=== PATIENT | male | born 1965 | race African-American/Black ===

== ENCOUNTER 2018-10-24 17:46 | Inpatient (IN) | payer OTHER ==
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
[2018-10-24] MEDS ORDERED: NICOTINE POLACRILEX 2 MG GUM BUC PRN (18:43)
[2018-10-24] MEDS ORDERED: MAGNESIUM HYDROX 2400MG/30ML ORAL SUSPENSION 30 ML CUP PO PRN (18:43)
[2018-10-24] MEDS ORDERED: MAG HYDROX/AL HYDROX/SIMETH 30 ML UNIT-DOSE CUP PO PRN (18:43)
[2018-10-24] MEDS ORDERED: MENTHOL/PHENOL 1 EACH UD MM PRN (18:43)
[2018-10-24] MEDS ORDERED: chlordiazePOXIDE HCL 10 MG CAPSULE PO PRN (18:43)
[2018-10-24] MEDS ORDERED: BISMUTH SUBSALICYLATE 524 MG/30 ML UD PO PRN (18:43)
[2018-10-24] MEDS ORDERED: ACETAMINOPHEN 325 MG TABLET (FP) PO PRN ×2 (18:43)
[2018-10-24] MEDS ORDERED: MAGNESIUM CITRATE 300 ML BOTTLE PO PRN (18:43)
[2018-10-24] MEDS: IBUPROFEN 400 MG TABLET (FP) PO PRN (20:57)
[2018-10-24] MEDS: METHOCARBAMOL 500 MG TABLET PO PRN (20:59)
[2018-10-24] MEDS ORDERED: traZODone HCL 50 MG TABLET (FP) PO SCH (22:00)
[2018-10-24] MEDS: THIAMINE HCL 100 MG TABLET (FP) PO SCH (22:03)
[2018-10-24] MEDS: chlordiazePOXIDE HCL 25 MG CAPSULE PO SCH (22:03)
[2018-10-25] MEDS: chlordiazePOXIDE HCL 25 MG CAPSULE PO SCH ×2 (06:22→14:24)
[2018-10-25 10:20] LABS: HEMATOCRIT 38.9 % (35.4-49); HEMOGLOBIN 12.7 GM/dL (11.7-16.9); MCH 31.7 pg (25.7-33.7); MCHC 32.7 g/dl (32.0-35.9); MEAN CELL VOLUME 96.8 fl (80-96); MEAN PLT VOLUME 8.7 fl (7.5-11.1); PLATELET COUNT 283 K/MM3 (134-434); RBC 4.02 M/mm3 (4.00-5.60); RDW 14.5 % (11.9-15.9); WHITE BLOOD COUNT 6.8 K/mm3 (4.0-10.0)
[2018-10-25 10:31] LABS: ALBUMIN 3.4 g/dl (3.4-5.0); ALK PHOS 115 U/L (45-117); ANION GAP 4 MMOL/L (8-16); BILIRUBIN,TOTAL 0.5 mg/dL (0.2-1); BLOOD UREA NITROGEN 17 mg/dL (7-18); CALCIUM 8.8 mg/dL (8.5-10.1); CHLORIDE 104 mmol/L (98-107); CO2 28 mmol/L (21-32); GLUCOSE,RANDOM 79 mg/dL (74-106); SGOT/AST 45 U/L (15-37); SGPT/ALT 37 U/L (13-61); SODIUM 136 mmol/L (136-145); TOT PROT 7.1 g/dl (6.4-8.2)
[2018-10-25] MEDS: METHOCARBAMOL 500 MG TABLET PO PRN ×2 (10:44→22:28)
[2018-10-25] MEDS: amLODIPine BESYLATE 5 MG TABLET (FP) PO SCH (10:44)
[2018-10-25] MEDS: PRENATAL VITAMINS W/ FOLIC ACID TABLET (FP) PO SCH (10:44)
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
--- NOTE | 2018-10-25 16:13 | PN ---
S CIWA - CIWA Score Nausea/Vomitin-No Nausea/No Vomiting Muscle Tremors: None Anxiety: 3 Agitation: 3 Paroxysmal Sweats: 3 Orientation: 2-Disoriented Date<2 days Tacttile Disturbances: 2-Mild Itch/Numbness/Burn Auditory Disturbances: 0-None Visual Disturbances: 2-Mild Sensitivity Headache: 0-None Present CIWA-Ar Total Score: 15 BHS Progress Note (SOAP) Subjective: Interrupted Sleep, Sweating, Body Aches. Objective: PATIENT A & O X 2 (UNCERTAIN ABOUT CURRENT DAY / DATE). PATIENT OBSERVED AMBULATING ON UNIT. IN NO ACUTE DISTRESS. 10/25/18 16:08 Vital Signs Temperature 96 F L 10/25/18 14:21 Pulse Rate 88 10/25/18 14:21 Respiratory Rate 20 10/25/18 14:21 Blood Pressure 117/81 10/25/18 14:21 O2 Sat by Pulse Oximetry (%) Laboratory Tests 10/25/18 10/25/18 10/25/18 07:00 07:00 07:00 WBC 6.8 RBC 4.02 Hgb 12.7 Hct 38.9 MCV 96.8 H MCH 31.7 MCHC 32.7 RDW 14.5 Plt Count 283 MPV 8.7 Sodium 136 Potassium 4.0 Chloride 104 Carbon Dioxide 28 Anion Gap 4 L BUN 17 Creatinine 1.0 Creat Clearance w eGFR 78.16 Random Glucose 79 Calcium 8.8 Total Bilirubin 0.5 AST 45 H ALT 37 Alkaline Phosphatase 115 Total Protein 7.1 Albumin 3.4 RPR Titer Nonreactive LABS NOTED. PATIENT REPORTS INTERMITTENT FEELING OF DISCOMFORT "NEAR TIP OF HIS PENUS" SINCE YESTERDAY. DISCOMFORT SOMETIMES OCCURS WHEN HE IS URINATING, BUT AT OTHER TIMES, WELL. ORDER UA AND URINE C + S. 10/25/18 16:11 Assessment: 10/25/18 16:08 WITHDRAWAL SYMPTOMS. Plan: CONTINUE DETOX. INCREASE DAILY PO FLUID INTAKE. PRN ROBAXIN FOR BODY ACHES / MUSCLE SPASMS. LIDODERM PATCH FOR RIGHT HIP PAIN.
[2018-10-25] MEDS: LIDOCAINE 5% TOPICAL PATCH TP SCH (17:30)
[2018-10-25] MEDS: traZODone HCL 100 MG TABLET (FP) PO SCH (22:25)
[2018-10-25] MEDS: QUEtiapine FUMARATE 200 MG TABLET PO SCH (22:25)
[2018-10-25] MEDS: chlordiazePOXIDE 5 MG CAPSULE PO SCH (22:25)
[2018-10-25] MEDS: THIAMINE HCL 100 MG TABLET (FP) PO SCH (22:25)
[2018-10-25] MEDS: LIDOCAINE PATCH REMOVAL MC SCH (22:27)
[2018-10-26] MEDS: chlordiazePOXIDE 5 MG CAPSULE PO SCH ×2 (05:19→15:02)
[2018-10-26] MEDS: IBUPROFEN 400 MG TABLET (FP) PO PRN (05:20)
[2018-10-26 10:26] LABS: PH,URINE 5.5 (5.0-8.0); URINE APPEARANCE CLEAR; URINE BILIRUBIN NEGATIVE (NEGATIVE); URINE COLOR YELLOW; URINE GLUCOSE (UA) NEGATIVE (NEGATIVE); URINE KETONE NEGATIVE (NEGATIVE); URINE LEUK ESTERASE NEGATIVE (NEGATIVE); URINE NITRITE NEGATIVE (NEGATIVE); URINE PROTEIN NEGATIVE (NEGATIVE)
[2018-10-26] MEDS: SERTRALINE HCL 50 MG TABLET (FP) PO SCH (10:47)
[2018-10-26] MEDS: QUEtiapine FUMARATE 100 MG TABLET (FP) PO SCH (10:47)
[2018-10-26] MEDS: amLODIPine BESYLATE 5 MG TABLET (FP) PO SCH (10:47)
[2018-10-26] MEDS: PRENATAL VITAMINS W/ FOLIC ACID TABLET (FP) PO SCH (10:48)
[2018-10-26] MEDS: METHOCARBAMOL 500 MG TABLET PO PRN (10:49)
[2018-10-26] MEDS: LIDOCAINE 5% TOPICAL PATCH TP SCH (10:49)
--- NOTE | 2018-10-26 15:36 | PN ---
[facility] CIWA - CIWA Score Nausea/Vomitin-No Nausea/No Vomiting Muscle Tremors: None Anxiety: 4-Mod. Anxious/Guarded Agitation: 0-Normal Activity Paroxysmal Sweats: 3 Orientation: 0-Oriented Tacttile Disturbances: 1-Very Mild Itch/Numbness Auditory Disturbances: 1-Very Mild Visual Disturbances: 2-Mild Sensitivity Headache: 0-None Present CIWA-Ar Total Score: 11 S Progress Note (SOAP) Subjective: Interrupted Sleep, Sweating, Body Aches. Objective: PATIENT A & O X 3, OBSERVED AMBULATING ON UNIT. IN NO ACUTE DISTRESS. 10/26/18 15:33 Vital Signs Temperature 97.0 F L 10/26/18 13:32 Pulse Rate 94 H 10/26/18 13:32 Respiratory Rate 20 10/26/18 13:32 Blood Pressure 129/83 10/26/18 13:32 O2 Sat by Pulse Oximetry (%) Laboratory Tests 10/25/18 10/25/18 10/25/18 07:00 07:00 07:00 WBC 6.8 RBC 4.02 Hgb 12.7 Hct 38.9 MCV 96.8 H MCH 31.7 MCHC 32.7 RDW 14.5 Plt Count 283 MPV 8.7 Sodium 136 Potassium 4.0 Chloride 104 Carbon Dioxide 28 Anion Gap 4 L BUN 17 Creatinine 1.0 Creat Clearance w eGFR 78.16 Random Glucose 79 Calcium 8.8 Total Bilirubin 0.5 AST 45 H ALT 37 Alkaline Phosphatase 115 Total Protein 7.1 Albumin 3.4 Urine Color Urine Appearance Urine pH Ur Specific [place] Urine Protein Urine Glucose (UA) Urine Ketones Urine Blood Urine Nitrite Urine Bilirubin Urine Urobilinogen Ur Leukocyte Esterase RPR Titer Nonreactive 10/26/18 07:45 WBC RBC Hgb Hct MCV MCH MCHC RDW Plt Count MPV Sodium Potassium Chloride Carbon Dioxide Anion Gap BUN Creatinine Creat Clearance w eGFR Random Glucose Calcium Total Bilirubin AST ALT Alkaline Phosphatase Total Protein Albumin Urine Color Yellow Urine Appearance Clear Urine pH 5.5 Ur Specific [place] 1.023 Urine Protein Negative Urine Glucose (UA) Negative Urine Ketones Negative Urine Blood Negative Urine Nitrite Negative Urine Bilirubin Negative Urine Urobilinogen 1.0 Ur Leukocyte Esterase Negative RPR Titer LABS NOTED. RESULTS OF UA NOTED. URINE C + S RESULTS PENDING. PATIENT REPORTS THAT INTERMITTENT SENSATION OF DISCOMFORT THAT HE WAS EXPERIENCING NEAR TIP OF HIS PENIS HAS NOT OCCURRED TODAY. 10/26/18 15:34 Assessment: 10/26/18 15:35 WITHDRAWAL SYMPTOMS. Plan: CONTINUE DETOX. INCREASE DAILY PO FLUID INTAKE.
[2018-10-26] MEDS ORDERED: chlordiazePOXIDE HCL 10 MG CAPSULE PO PRN (21:00)
[2018-10-26] MEDS: chlordiazePOXIDE HCL 10 MG CAPSULE PO SCH (22:29)
[2018-10-26] MEDS: traZODone HCL 100 MG TABLET (FP) PO SCH (22:29)
[2018-10-26] MEDS: THIAMINE HCL 100 MG TABLET (FP) PO SCH (22:29)
[2018-10-26] MEDS: QUEtiapine FUMARATE 200 MG TABLET PO SCH (22:29)
[2018-10-26] MEDS: LIDOCAINE PATCH REMOVAL MC SCH (23:13)
[2018-10-27] MEDS: chlordiazePOXIDE HCL 10 MG CAPSULE PO SCH ×3 (05:25→22:20)
[2018-10-27] MEDS: QUEtiapine FUMARATE 100 MG TABLET (FP) PO SCH (10:10)
[2018-10-27] MEDS: PRENATAL VITAMINS W/ FOLIC ACID TABLET (FP) PO SCH (10:10)
[2018-10-27] MEDS: SERTRALINE HCL 50 MG TABLET (FP) PO SCH (10:10)
[2018-10-27] MEDS: amLODIPine BESYLATE 5 MG TABLET (FP) PO SCH (10:10)
[2018-10-27] MEDS: LIDOCAINE 5% TOPICAL PATCH TP SCH (10:11)
--- NOTE | 2018-10-27 11:29 | DS ---
[facility] Detox Discharge Summary Admission Date: 10/24/18 Discharge Date: 10/28/18 - History Present History: Alcohol Dependence - Physical Exam Results Vital Signs: Vital Signs Temperature 97.2 F L 10/27/18 09:53 Pulse Rate 79 10/27/18 09:53 Respiratory Rate 18 10/27/18 09:53 Blood Pressure 140/81 10/27/18 09:53 O2 Sat by Pulse Oximetry (%) - Treatment Hospital Course: Detox Protocol Followed, Detoxed Safely, Responded well, Discharged Condition Good, Rehab Referral Accepted - Medication Discharge Medications: Ambulatory Orders Amlodipine Besylate [Norvasc -] 5 mg PO DAILY 10/24/18 Quetiapine Fumarate [Seroquel] 400 mg PO BID 10/24/18 Sertraline HCl [Zoloft] 25 mg PO DAILY 10/24/18 Trazodone HCl 150 mg PO HS 10/24/18 - AMA Did Patient Leave Against Medical Advice: No
--- NOTE | 2018-10-27 11:29 | PN ---
[facility] CIWA - CIWA Score Nausea/Vomitin-No Nausea/No Vomiting Muscle Tremors: 1-None Visible, but [place] Anxiety: 1-Mildly Anxious Agitation: 2 Paroxysmal Sweats: 1-Minimal Palms Moist Orientation: 0-Oriented Tacttile Disturbances: 0-None Auditory Disturbances: 0-None Visual Disturbances: 0-None Headache: 1-Very Mild CIWA-Ar Total Score: 6 S Progress Note (SOAP) Subjective: patient wants to go to alcohol rehab he has been sober for "years" but recent incident he starts to drink alcohol again patient determines to be sober aftercare revelation Objective: 10/27/18 11:32 Vital Signs Temperature 97.2 F L 10/27/18 09:53 Pulse Rate 79 10/27/18 09:53 Respiratory Rate 18 10/27/18 09:53 Blood Pressure 140/81 10/27/18 09:53 O2 Sat by Pulse Oximetry (%) Laboratory Last Values WBC 6.8 K/mm3 (4.0-10.0) 10/25/18 07:00 RBC 4.02 M/mm3 (4.00-5.60) 10/25/18 07:00 Hgb 12.7 GM/dL (11.7-16.9) 10/25/18 07:00 Hct 38.9 % (35.4-49) 10/25/18 07:00 MCV 96.8 fl (80-96) H 10/25/18 07:00 MCH 31.7 pg (25.7-33.7) 10/25/18 07:00 MCHC 32.7 g/dl (32.0-35.9) 10/25/18 07:00 RDW 14.5 % (11.9-15.9) 10/25/18 07:00 Plt Count 283 K/MM3 (134-434) 10/25/18 07:00 MPV 8.7 fl (7.5-11.1) 10/25/18 07:00 Sodium 136 mmol/L (136-145) 10/25/18 07:00 Potassium 4.0 mmol/L (3.5-5.1) 10/25/18 07:00 Chloride 104 mmol/L (98-107) 10/25/18 07:00 Carbon Dioxide 28 mmol/L (21-32) 10/25/18 07:00 Anion Gap 4 MMOL/L (8-16) L 10/25/18 07:00 BUN 17 mg/dL (7-18) 10/25/18 07:00 Creatinine 1.0 mg/dL (0.55-1.3) 10/25/18 07:00 Creat Clearance w eGFR 78.16 (>60) 10/25/18 07:00 Random Glucose 79 mg/dL (74-106) 10/25/18 07:00 Calcium 8.8 mg/dL (8.5-10.1) 10/25/18 07:00 Total Bilirubin 0.5 mg/dL (0.2-1) 10/25/18 07:00 AST 45 U/L (15-37) H 10/25/18 07:00 ALT 37 U/L (13-61) 10/25/18 07:00 Alkaline Phosphatase 115 U/L (45-117) 10/25/18 07:00 Total Protein 7.1 g/dl (6.4-8.2) 10/25/18 07:00 Albumin 3.4 g/dl (3.4-5.0) 10/25/18 07:00 Urine Color Yellow 10/26/18 07:45 Urine Appearance Clear 10/26/18 07:45 Urine pH 5.5 (5.0-8.0) 10/26/18 07:45 Ur Specific [place] 1.023 (1.010-1.035) 10/26/18 07:45 Urine Protein Negative (NEGATIVE) 10/26/18 07:45 Urine Glucose (UA) Negative (NEGATIVE) 10/26/18 07:45 Urine Ketones Negative (NEGATIVE) 10/26/18 07:45 Urine Blood Negative (NEGATIVE) 10/26/18 07:45 Urine Nitrite Negative (NEGATIVE) 10/26/18 07:45 Urine Bilirubin Negative (NEGATIVE) 10/26/18 07:45 Urine Urobilinogen 1.0 mg/dL (0.2-1.0) 10/26/18 07:45 Ur Leukocyte Esterase Negative (NEGATIVE) 10/26/18 07:45 RPR Titer Nonreactive (NONREACTIVE) 10/25/18 07:00 lab noted Assessment: 10/27/18 11:33 withdrawal sx Plan: continue detox
[2018-10-27] MEDS: THIAMINE HCL 100 MG TABLET (FP) PO SCH (22:19)
[2018-10-27] MEDS: traZODone HCL 100 MG TABLET (FP) PO SCH (22:20)
[2018-10-27] MEDS: QUEtiapine FUMARATE 200 MG TABLET PO SCH (22:20)
[2018-10-27] MEDS: LIDOCAINE PATCH REMOVAL MC SCH (22:39)
[2018-10-28] MEDS: amLODIPine BESYLATE 5 MG TABLET (FP) PO SCH (10:19)
[2018-10-28] MEDS: LIDOCAINE 5% TOPICAL PATCH TP SCH (10:19)
[2018-10-28] MEDS: QUEtiapine FUMARATE 100 MG TABLET (FP) PO SCH (10:20)
[2018-10-28] MEDS: SERTRALINE HCL 50 MG TABLET (FP) PO SCH (10:20)
[2018-10-28] MEDS: PRENATAL VITAMINS W/ FOLIC ACID TABLET (FP) PO SCH (10:20)
--- NOTE | 2018-10-28 15:27 | PN ---
[facility] CIWA - CIWA Score Nausea/Vomitin-No Nausea/No Vomiting Muscle Tremors: 1-None Visible, but [place] Anxiety: 0-No Anxiety, at Ease Agitation: 0-Normal Activity Paroxysmal Sweats: No Perspiration Orientation: 0-Oriented Tacttile Disturbances: 0-None Auditory Disturbances: 0-None Visual Disturbances: 0-None Headache: 1-Very Mild CIWA-Ar Total Score: 2 S Progress Note (SOAP) Subjective: received counselor report that insurance granted one more day of detox change discharge date to 10/29/18 Objective: 10/28/18 15:28 Vital Signs Temperature 97.7 F 10/28/18 13:35 Pulse Rate 102 H 10/28/18 13:35 Respiratory Rate 18 10/28/18 13:35 Blood Pressure 131/83 10/28/18 13:35 O2 Sat by Pulse Oximetry (%) Laboratory Last Values WBC 6.8 K/mm3 (4.0-10.0) 10/25/18 07:00 RBC 4.02 M/mm3 (4.00-5.60) 10/25/18 07:00 Hgb 12.7 GM/dL (11.7-16.9) 10/25/18 07:00 Hct 38.9 % (35.4-49) 10/25/18 07:00 MCV 96.8 fl (80-96) H 10/25/18 07:00 MCH 31.7 pg (25.7-33.7) 10/25/18 07:00 MCHC 32.7 g/dl (32.0-35.9) 10/25/18 07:00 RDW 14.5 % (11.9-15.9) 10/25/18 07:00 Plt Count 283 K/MM3 (134-434) 10/25/18 07:00 MPV 8.7 fl (7.5-11.1) 10/25/18 07:00 Sodium 136 mmol/L (136-145) 10/25/18 07:00 Potassium 4.0 mmol/L (3.5-5.1) 10/25/18 07:00 Chloride 104 mmol/L (98-107) 10/25/18 07:00 Carbon Dioxide 28 mmol/L (21-32) 10/25/18 07:00 Anion Gap 4 MMOL/L (8-16) L 10/25/18 07:00 BUN 17 mg/dL (7-18) 10/25/18 07:00 Creatinine 1.0 mg/dL (0.55-1.3) 10/25/18 07:00 Creat Clearance w eGFR 78.16 (>60) 10/25/18 07:00 Random Glucose 79 mg/dL (74-106) 10/25/18 07:00 Calcium 8.8 mg/dL (8.5-10.1) 10/25/18 07:00 Total Bilirubin 0.5 mg/dL (0.2-1) 10/25/18 07:00 AST 45 U/L (15-37) H 10/25/18 07:00 ALT 37 U/L (13-61) 10/25/18 07:00 Alkaline Phosphatase 115 U/L (45-117) 10/25/18 07:00 Total Protein 7.1 g/dl (6.4-8.2) 10/25/18 07:00 Albumin 3.4 g/dl (3.4-5.0) 10/25/18 07:00 Urine Color Yellow 10/26/18 07:45 Urine Appearance Clear 10/26/18 07:45 Urine pH 5.5 (5.0-8.0) 10/26/18 07:45 Ur Specific [place] 1.023 (1.010-1.035) 10/26/18 07:45 Urine Protein Negative (NEGATIVE) 10/26/18 07:45 Urine Glucose (UA) Negative (NEGATIVE) 10/26/18 07:45 Urine Ketones Negative (NEGATIVE) 10/26/18 07:45 Urine Blood Negative (NEGATIVE) 10/26/18 07:45 Urine Nitrite Negative (NEGATIVE) 10/26/18 07:45 Urine Bilirubin Negative (NEGATIVE) 10/26/18 07:45 Urine Urobilinogen 1.0 mg/dL (0.2-1.0) 10/26/18 07:45 Ur Leukocyte Esterase Negative (NEGATIVE) 10/26/18 07:45 RPR Titer Nonreactive (NONREACTIVE) 10/25/18 07:00 lab noted Assessment: 10/28/18 15:29 mild withdrawal sx Plan: continue detox
[2018-10-28] MEDS: QUEtiapine FUMARATE 200 MG TABLET PO SCH (22:05)
[2018-10-28] MEDS: THIAMINE HCL 100 MG TABLET (FP) PO SCH (22:05)
[2018-10-28] MEDS: traZODone HCL 100 MG TABLET (FP) PO SCH (22:05)
[2018-10-28] MEDS: LIDOCAINE PATCH REMOVAL MC SCH (22:06)
[2018-10-29] MEDS: QUEtiapine FUMARATE 100 MG TABLET (FP) PO SCH (10:17)
[2018-10-29] MEDS: amLODIPine BESYLATE 5 MG TABLET (FP) PO SCH (10:17)
[2018-10-29] MEDS: SERTRALINE HCL 50 MG TABLET (FP) PO SCH (10:17)
[2018-10-29] MEDS: PRENATAL VITAMINS W/ FOLIC ACID TABLET (FP) PO SCH (10:17)
[2018-10-29] MEDS: LIDOCAINE 5% TOPICAL PATCH TP SCH (10:18)
[2018-10-29] MEDS: IBUPROFEN 400 MG TABLET (FP) PO PRN (10:45)
[2018-10-29] MEDS: METHOCARBAMOL 500 MG TABLET PO PRN (10:46)
--- NOTE | 2018-10-29 11:51 | HP ---
[facility] Rehab Assess/Revision - Admission History Admitted to Rehab from: [facility] Date of Admission to Rehab: 09/28/18 - Vital signs Vital Signs: Vital Signs Period Temp Pulse Resp BP Sys/Apple Pulse Ox Last 24 Hr 97.3 F-98.4 F 83-102 18-18 108-138/67-98 - Findings Detox History & Physical reviewed: Yes Concur with findings: Yes Comments/Additional Findings: transferred from detox to rehab admission as per protocol Inpatient Rehab Admission - Rehab Decision to Admit Inpatient rehab admission?: Yes - Initial Determination Are CD services needed?: Yes Free of communicable disease: Yes Not in need of hospitalization: Yes - Rehab Admission Criteria Previous failed treatment: Yes Poor recovery environment: Yes Comorbidities: Yes Lacks judgement: No Patient is meeting Inpatient Rehab admission criteria:: Yes
[2018-10-29] MEDS: traZODone HCL 100 MG TABLET (FP) PO SCH (21:58)
[2018-10-29] MEDS: LIDOCAINE PATCH REMOVAL MC SCH (21:58)
[2018-10-29] MEDS: QUEtiapine FUMARATE 200 MG TABLET PO SCH (21:58)
[2018-10-29] MEDS: THIAMINE HCL 100 MG TABLET (FP) PO SCH (21:58)
[2018-10-29] MEDS ORDERED: QUEtiapine FUMARATE 200 MG TABLET PO SCH (22:00)
[2018-10-30] MEDS ORDERED: QUEtiapine FUMARATE 100 MG TABLET (FP) PO SCH (10:00)
[2018-10-30] MEDS ORDERED: SERTRALINE HCL 50 MG TABLET (FP) PO SCH (10:00)
[2018-10-30] MEDS: QUEtiapine FUMARATE 100 MG TABLET (FP) PO SCH (10:58)
[2018-10-30] MEDS: LIDOCAINE 5% TOPICAL PATCH TP SCH (10:58)
[2018-10-30] MEDS: SERTRALINE HCL 50 MG TABLET (FP) PO SCH (10:59)
[2018-10-30] MEDS: amLODIPine BESYLATE 5 MG TABLET (FP) PO SCH (10:59)
[2018-10-30] MEDS: PRENATAL VITAMINS W/ FOLIC ACID TABLET (FP) PO SCH (10:59)
[2018-10-30] MEDS: IBUPROFEN 400 MG TABLET (FP) PO PRN (11:03)
[2018-10-30] MEDS: METHOCARBAMOL 500 MG TABLET PO PRN (11:04)
[2018-10-30] MEDS ORDERED: PNEUMOC 13-VAL CONJ-DIP CRM/PF 0.5 ML DISP.SYRIN IM ONE (12:00)
[2018-10-30] MEDS: traZODone HCL 100 MG TABLET (FP) PO SCH (21:43)
[2018-10-30] MEDS: THIAMINE HCL 100 MG TABLET (FP) PO SCH (21:43)
[2018-10-30] MEDS: QUEtiapine FUMARATE 200 MG TABLET PO SCH (21:43)
[2018-10-30] MEDS: LIDOCAINE PATCH REMOVAL MC SCH (21:44)
[2018-10-31] MEDS: QUEtiapine FUMARATE 200 MG TABLET PO SCH ×2 (10:08→21:39)
[2018-10-31] MEDS: SERTRALINE HCL 50 MG TABLET (FP) PO SCH (10:08)
[2018-10-31] MEDS: amLODIPine BESYLATE 5 MG TABLET (FP) PO SCH (10:08)
[2018-10-31] MEDS: PRENATAL VITAMINS W/ FOLIC ACID TABLET (FP) PO SCH (10:08)
[2018-10-31] MEDS: LIDOCAINE 5% TOPICAL PATCH TP SCH (10:08)
[2018-10-31] MEDS: IBUPROFEN 400 MG TABLET (FP) PO PRN ×2 (10:10→17:57)
[2018-10-31] MEDS: METHOCARBAMOL 500 MG TABLET PO PRN (10:10)
[2018-10-31] MEDS: THIAMINE HCL 100 MG TABLET (FP) PO SCH (21:39)
[2018-10-31] MEDS: traZODone HCL 100 MG TABLET (FP) PO SCH (21:39)
[2018-10-31] MEDS: LIDOCAINE PATCH REMOVAL MC SCH (21:40)
[2018-11-01] MEDS: SERTRALINE HCL 50 MG TABLET (FP) PO SCH (09:33)
[2018-11-01] MEDS: QUEtiapine FUMARATE 200 MG TABLET PO SCH ×2 (09:33→21:48)
[2018-11-01] MEDS: PRENATAL VITAMINS W/ FOLIC ACID TABLET (FP) PO SCH (09:33)
[2018-11-01] MEDS: amLODIPine BESYLATE 5 MG TABLET (FP) PO SCH (09:33)
[2018-11-01] MEDS: IBUPROFEN 400 MG TABLET (FP) PO PRN (09:33)
[2018-11-01] MEDS: LIDOCAINE 5% TOPICAL PATCH TP SCH (09:36)
[2018-11-01] MEDS ORDERED: diphenhydrAMINE HCL 50 MG CAPSULE PO ONE (10:57)
--- NOTE | 2018-11-01 12:46 | PN ---
[facility] Progress Note Note: PATIENT SEEN FOR SWELLING OF RIGHT CHEEK. PATIENT REPORTS WAKING UP WITH FACIAL SWELLING AND DENIES ANY CHANGES IN DIET AND MEDICATIONS. PATIENT REPORTS HAVING TOOTHACHE TO RIGHT LOWER MOLAR AREA, DENIES SORE THROAT, COUGH, CHEST PAIN, SOB AND DIZZINESS. Vital Signs Temperature 97.1 F L 11/01/18 06:46 Pulse Rate 91 H 11/01/18 09:15 Respiratory Rate 18 11/01/18 06:46 Blood Pressure 142/100 11/01/18 09:15 O2 Sat by Pulse Oximetry (%) Laboratory Tests 10/25/18 10/25/18 10/25/18 07:00 07:00 07:00 WBC 6.8 RBC 4.02 Hgb 12.7 Hct 38.9 MCV 96.8 H MCH 31.7 MCHC 32.7 RDW 14.5 Plt Count 283 MPV 8.7 Sodium 136 Potassium 4.0 Chloride 104 Carbon Dioxide 28 Anion Gap 4 L BUN 17 Creatinine 1.0 Creat Clearance w eGFR 78.16 Random Glucose 79 Calcium 8.8 Total Bilirubin 0.5 AST 45 H ALT 37 Alkaline Phosphatase 115 Total Protein 7.1 Albumin 3.4 Urine Color Urine Appearance Urine pH Ur Specific [place] Urine Protein Urine Glucose (UA) Urine Ketones Urine Blood Urine Nitrite Urine Bilirubin Urine Urobilinogen Ur Leukocyte Esterase RPR Titer Nonreactive 10/26/18 07:45 WBC RBC Hgb Hct MCV MCH MCHC RDW Plt Count MPV Sodium Potassium Chloride Carbon Dioxide Anion Gap BUN Creatinine Creat Clearance w eGFR Random Glucose Calcium Total Bilirubin AST ALT Alkaline Phosphatase Total Protein Albumin Urine Color Yellow Urine Appearance Clear Urine pH 5.5 Ur Specific [place] 1.023 Urine Protein Negative Urine Glucose (UA) Negative Urine Ketones Negative Urine Blood Negative Urine Nitrite Negative Urine Bilirubin Negative Urine Urobilinogen 1.0 Ur Leukocyte Esterase Negative RPR Titer PE: ALERT AND ORIENTED X 3 SKIN WARM AND DRY +PERRLA, EOMS INTACT BL NO NASAL DISCHARGE ORAL MUCOSA MOIST, NO VISIBLE EXUDATE ON PHARYNX, +INFLAMED MUCOSA OF RIGHT LOWER GUM LINE A/P: RIGHT SIDED FACIAL SWELLING TOOTHACHE ?ABSCESS WILL ORDER BENADRYL 50MG PO NOW THEN 25MG EVERY 6 HR PRN START AMOXICILLIN 500MG TID X 7 DAYS IBUPROFEN INCREASED TO 800MG EVERY 8 HR PRN FOR PAIN CONTINUE TO MONITOR CLINICALLY
[2018-11-01] MEDS: AMOXICILLIN 500 MG CAPSULE (FP) PO SCH ×2 (13:14→21:48)
[2018-11-01] MEDS: traZODone HCL 100 MG TABLET (FP) PO SCH (21:48)
[2018-11-01] MEDS: LIDOCAINE PATCH REMOVAL MC SCH (21:49)
[2018-11-01] MEDS: THIAMINE HCL 100 MG TABLET (FP) PO SCH (21:49)
[2018-11-02] MEDS: AMOXICILLIN 500 MG CAPSULE (FP) PO SCH ×3 (05:58→21:47)
[2018-11-02] MEDS: QUEtiapine FUMARATE 200 MG TABLET PO SCH ×2 (10:12→21:47)
[2018-11-02] MEDS: SERTRALINE HCL 50 MG TABLET (FP) PO SCH (10:12)
[2018-11-02] MEDS: amLODIPine BESYLATE 5 MG TABLET (FP) PO SCH (10:12)
[2018-11-02] MEDS: PRENATAL VITAMINS W/ FOLIC ACID TABLET (FP) PO SCH (10:12)
[2018-11-02] MEDS: LIDOCAINE 5% TOPICAL PATCH TP SCH (10:12)
[2018-11-02] MEDS: IBUPROFEN 400 MG TABLET (FP) PO PRN (10:15)
[2018-11-02] MEDS: METHOCARBAMOL 500 MG TABLET PO PRN (14:45)
[2018-11-02] MEDS: LIDOCAINE PATCH REMOVAL MC SCH (21:47)
[2018-11-02] MEDS: THIAMINE HCL 100 MG TABLET (FP) PO SCH (21:47)
[2018-11-02] MEDS: traZODone HCL 100 MG TABLET (FP) PO SCH (21:47)
[2018-11-03] MEDS: AMOXICILLIN 500 MG CAPSULE (FP) PO SCH ×3 (05:49→21:09)
[2018-11-03] MEDS: amLODIPine BESYLATE 5 MG TABLET (FP) PO SCH (09:43)
[2018-11-03] MEDS: PRENATAL VITAMINS W/ FOLIC ACID TABLET (FP) PO SCH (09:43)
[2018-11-03] MEDS: QUEtiapine FUMARATE 200 MG TABLET PO SCH ×2 (09:43→21:09)
[2018-11-03] MEDS: IBUPROFEN 400 MG TABLET (FP) PO PRN (09:43)
[2018-11-03] MEDS: LIDOCAINE 5% TOPICAL PATCH TP SCH (09:43)
[2018-11-03] MEDS: SERTRALINE HCL 50 MG TABLET (FP) PO SCH (09:43)
[2018-11-03] MEDS: traZODone HCL 100 MG TABLET (FP) PO SCH (21:09)
[2018-11-03] MEDS: THIAMINE HCL 100 MG TABLET (FP) PO SCH (21:09)
[2018-11-03] MEDS: LIDOCAINE PATCH REMOVAL MC SCH (21:10)
[2018-11-04] MEDS: AMOXICILLIN 500 MG CAPSULE (FP) PO SCH ×3 (06:33→21:44)
[2018-11-04] MEDS: QUEtiapine FUMARATE 200 MG TABLET PO SCH ×2 (09:56→21:44)
[2018-11-04] MEDS: PRENATAL VITAMINS W/ FOLIC ACID TABLET (FP) PO SCH (09:56)
[2018-11-04] MEDS: amLODIPine BESYLATE 5 MG TABLET (FP) PO SCH (09:57)
[2018-11-04] MEDS: LIDOCAINE 5% TOPICAL PATCH TP SCH (09:57)
[2018-11-04] MEDS: IBUPROFEN 400 MG TABLET (FP) PO PRN ×2 (09:58→21:45)
[2018-11-04] MEDS: SERTRALINE HCL 50 MG TABLET (FP) PO SCH (09:58)
[2018-11-04] MEDS: METHOCARBAMOL 500 MG TABLET PO PRN (09:59)
[2018-11-04] MEDS: THIAMINE HCL 100 MG TABLET (FP) PO SCH (21:43)
[2018-11-04] MEDS: traZODone HCL 100 MG TABLET (FP) PO SCH (21:44)
[2018-11-04] MEDS: LIDOCAINE PATCH REMOVAL MC SCH (22:08)
[2018-11-05] MEDS: AMOXICILLIN 500 MG CAPSULE (FP) PO SCH ×3 (06:29→21:37)
[2018-11-05] MEDS: IBUPROFEN 400 MG TABLET (FP) PO PRN (10:28)
[2018-11-05] MEDS: amLODIPine BESYLATE 5 MG TABLET (FP) PO SCH (10:29)
[2018-11-05] MEDS: SERTRALINE HCL 50 MG TABLET (FP) PO SCH (10:29)
[2018-11-05] MEDS: LIDOCAINE 5% TOPICAL PATCH TP SCH (10:29)
[2018-11-05] MEDS: QUEtiapine FUMARATE 200 MG TABLET PO SCH ×2 (10:29→21:37)
[2018-11-05] MEDS: PRENATAL VITAMINS W/ FOLIC ACID TABLET (FP) PO SCH (10:29)
[2018-11-05] MEDS: CYCLOBENZAPRINE HCL 10 MG TABLET (FP) PO SCH ×2 (14:12→21:37)
[2018-11-05] MEDS: traZODone HCL 100 MG TABLET (FP) PO SCH (21:37)
[2018-11-05] MEDS: THIAMINE HCL 100 MG TABLET (FP) PO SCH (21:37)
[2018-11-05] MEDS: LIDOCAINE PATCH REMOVAL MC SCH (21:38)
[2018-11-06] MEDS: AMOXICILLIN 500 MG CAPSULE (FP) PO SCH ×3 (06:03→21:21)
[2018-11-06] MEDS: CYCLOBENZAPRINE HCL 10 MG TABLET (FP) PO SCH ×3 (06:03→21:21)
[2018-11-06] MEDS: SERTRALINE HCL 50 MG TABLET (FP) PO SCH (10:07)
[2018-11-06] MEDS: amLODIPine BESYLATE 5 MG TABLET (FP) PO SCH (10:08)
[2018-11-06] MEDS: IBUPROFEN 400 MG TABLET (FP) PO PRN ×2 (10:08→21:22)
[2018-11-06] MEDS: QUEtiapine FUMARATE 200 MG TABLET PO SCH ×2 (10:08→21:21)
[2018-11-06] MEDS: PRENATAL VITAMINS W/ FOLIC ACID TABLET (FP) PO SCH (10:08)
[2018-11-06] MEDS: LIDOCAINE 5% TOPICAL PATCH TP SCH (10:09)
[2018-11-06] MEDS: traZODone HCL 100 MG TABLET (FP) PO SCH (21:21)
[2018-11-06] MEDS: THIAMINE HCL 100 MG TABLET (FP) PO SCH (21:21)
[2018-11-06] MEDS: LIDOCAINE PATCH REMOVAL MC SCH (21:37)
[2018-11-07] MEDS: CYCLOBENZAPRINE HCL 10 MG TABLET (FP) PO SCH ×3 (06:13→21:26)
[2018-11-07] MEDS: AMOXICILLIN 500 MG CAPSULE (FP) PO SCH ×3 (06:13→21:27)
[2018-11-07] MEDS: amLODIPine BESYLATE 5 MG TABLET (FP) PO SCH (10:04)
[2018-11-07] MEDS: QUEtiapine FUMARATE 200 MG TABLET PO SCH ×2 (10:04→21:26)
[2018-11-07] MEDS: SERTRALINE HCL 50 MG TABLET (FP) PO SCH (10:04)
[2018-11-07] MEDS: PRENATAL VITAMINS W/ FOLIC ACID TABLET (FP) PO SCH (10:04)
[2018-11-07] MEDS: IBUPROFEN 400 MG TABLET (FP) PO PRN (10:05)
[2018-11-07] MEDS: LIDOCAINE 5% TOPICAL PATCH TP SCH (10:05)
[2018-11-07] MEDS: traZODone HCL 100 MG TABLET (FP) PO SCH (21:26)
[2018-11-07] MEDS: THIAMINE HCL 100 MG TABLET (FP) PO SCH (21:26)
[2018-11-07] MEDS: LIDOCAINE PATCH REMOVAL MC SCH (21:27)
[2018-11-08] MEDS: CYCLOBENZAPRINE HCL 10 MG TABLET (FP) PO SCH ×3 (06:29→21:30)
[2018-11-08] MEDS: AMOXICILLIN 500 MG CAPSULE (FP) PO SCH (06:29)
[2018-11-08] MEDS: QUEtiapine FUMARATE 200 MG TABLET PO SCH ×2 (09:47→21:30)
[2018-11-08] MEDS: PRENATAL VITAMINS W/ FOLIC ACID TABLET (FP) PO SCH (09:47)
[2018-11-08] MEDS: SERTRALINE HCL 50 MG TABLET (FP) PO SCH (09:47)
[2018-11-08] MEDS: amLODIPine BESYLATE 5 MG TABLET (FP) PO SCH (09:47)
[2018-11-08] MEDS: LIDOCAINE 5% TOPICAL PATCH TP SCH (09:47)
[2018-11-08] MEDS: IBUPROFEN 400 MG TABLET (FP) PO PRN (09:48)
[2018-11-08] MEDS: traZODone HCL 100 MG TABLET (FP) PO SCH (21:30)
[2018-11-08] MEDS: THIAMINE HCL 100 MG TABLET (FP) PO SCH (21:30)
[2018-11-08] MEDS: LIDOCAINE PATCH REMOVAL MC SCH (21:31)
[2018-11-09] MEDS: CYCLOBENZAPRINE HCL 10 MG TABLET (FP) PO SCH ×3 (06:52→21:35)
[2018-11-09] MEDS: SERTRALINE HCL 50 MG TABLET (FP) PO SCH (10:06)
[2018-11-09] MEDS: PRENATAL VITAMINS W/ FOLIC ACID TABLET (FP) PO SCH (10:06)
[2018-11-09] MEDS: amLODIPine BESYLATE 5 MG TABLET (FP) PO SCH (10:06)
[2018-11-09] MEDS: QUEtiapine FUMARATE 200 MG TABLET PO SCH ×2 (10:06→21:35)
[2018-11-09] MEDS: LIDOCAINE 5% TOPICAL PATCH TP SCH (10:06)
[2018-11-09] MEDS: IBUPROFEN 400 MG TABLET (FP) PO PRN (10:07)
[2018-11-09] MEDS: THIAMINE HCL 100 MG TABLET (FP) PO SCH (21:34)
[2018-11-09] MEDS: LIDOCAINE PATCH REMOVAL MC SCH (21:35)
[2018-11-09] MEDS: traZODone HCL 100 MG TABLET (FP) PO SCH (21:35)
[2018-11-10] MEDS: CYCLOBENZAPRINE HCL 10 MG TABLET (FP) PO SCH ×3 (06:36→21:40)
[2018-11-10] MEDS: LIDOCAINE 5% TOPICAL PATCH TP SCH (10:21)
[2018-11-10] MEDS: QUEtiapine FUMARATE 200 MG TABLET PO SCH ×2 (10:21→21:40)
[2018-11-10] MEDS: amLODIPine BESYLATE 5 MG TABLET (FP) PO SCH (10:21)
[2018-11-10] MEDS: PRENATAL VITAMINS W/ FOLIC ACID TABLET (FP) PO SCH (10:21)
[2018-11-10] MEDS: SERTRALINE HCL 50 MG TABLET (FP) PO SCH (10:21)
[2018-11-10] MEDS: IBUPROFEN 400 MG TABLET (FP) PO PRN ×2 (10:23→21:40)
[2018-11-10] MEDS: THIAMINE HCL 100 MG TABLET (FP) PO SCH (21:39)
[2018-11-10] MEDS: traZODone HCL 100 MG TABLET (FP) PO SCH (21:39)
[2018-11-10] MEDS: LIDOCAINE PATCH REMOVAL MC SCH (21:40)
[2018-11-11] MEDS: CYCLOBENZAPRINE HCL 10 MG TABLET (FP) PO SCH ×3 (05:54→21:17)
[2018-11-11] MEDS: SERTRALINE HCL 50 MG TABLET (FP) PO SCH (10:05)
[2018-11-11] MEDS: QUEtiapine FUMARATE 200 MG TABLET PO SCH ×2 (10:05→21:17)
[2018-11-11] MEDS: amLODIPine BESYLATE 5 MG TABLET (FP) PO SCH (10:05)
[2018-11-11] MEDS: LIDOCAINE 5% TOPICAL PATCH TP SCH (10:05)
[2018-11-11] MEDS: PRENATAL VITAMINS W/ FOLIC ACID TABLET (FP) PO SCH (10:05)
[2018-11-11] MEDS: IBUPROFEN 400 MG TABLET (FP) PO PRN (10:05)
[2018-11-11] MEDS: THIAMINE HCL 100 MG TABLET (FP) PO SCH (21:17)
[2018-11-11] MEDS: traZODone HCL 100 MG TABLET (FP) PO SCH (21:17)
[2018-11-11] MEDS: LIDOCAINE PATCH REMOVAL MC SCH (23:35)
[2018-11-12] MEDS: CYCLOBENZAPRINE HCL 10 MG TABLET (FP) PO SCH ×3 (06:09→21:20)
[2018-11-12] MEDS: amLODIPine BESYLATE 5 MG TABLET (FP) PO SCH (10:10)
[2018-11-12] MEDS: SERTRALINE HCL 50 MG TABLET (FP) PO SCH (10:10)
[2018-11-12] MEDS: QUEtiapine FUMARATE 200 MG TABLET PO SCH ×2 (10:10→21:20)
[2018-11-12] MEDS: PRENATAL VITAMINS W/ FOLIC ACID TABLET (FP) PO SCH (10:10)
[2018-11-12] MEDS: LIDOCAINE 5% TOPICAL PATCH TP SCH (10:11)
[2018-11-12] MEDS: IBUPROFEN 400 MG TABLET (FP) PO PRN ×2 (10:11→21:21)
[2018-11-12] MEDS: THIAMINE HCL 100 MG TABLET (FP) PO SCH (21:20)
[2018-11-12] MEDS: LIDOCAINE PATCH REMOVAL MC SCH (21:20)
[2018-11-12] MEDS: MELATONIN 5 MG TABLETS PO PRN (21:21)
[2018-11-12] MEDS: traZODone HCL 100 MG TABLET (FP) PO SCH (22:16)
[2018-11-13] MEDS: CYCLOBENZAPRINE HCL 10 MG TABLET (FP) PO SCH ×3 (06:03→21:35)
[2018-11-13] MEDS: PRENATAL VITAMINS W/ FOLIC ACID TABLET (FP) PO SCH (09:45)
[2018-11-13] MEDS: SERTRALINE HCL 50 MG TABLET (FP) PO SCH (09:45)
[2018-11-13] MEDS: amLODIPine BESYLATE 5 MG TABLET (FP) PO SCH (09:45)
[2018-11-13] MEDS: QUEtiapine FUMARATE 200 MG TABLET PO SCH ×2 (09:45→21:35)
[2018-11-13] MEDS: LIDOCAINE 5% TOPICAL PATCH TP SCH (09:45)
[2018-11-13] MEDS: IBUPROFEN 400 MG TABLET (FP) PO PRN ×2 (09:46→21:37)
[2018-11-13] MEDS: MELATONIN 5 MG TABLETS PO PRN (21:35)
[2018-11-13] MEDS: traZODone HCL 100 MG TABLET (FP) PO SCH (21:35)
[2018-11-13] MEDS: THIAMINE HCL 100 MG TABLET (FP) PO SCH (21:35)
[2018-11-13] MEDS: LIDOCAINE PATCH REMOVAL MC SCH (21:49)
[2018-11-14] MEDS: CYCLOBENZAPRINE HCL 10 MG TABLET (FP) PO SCH ×3 (06:11→21:12)
[2018-11-14] MEDS: PRENATAL VITAMINS W/ FOLIC ACID TABLET (FP) PO SCH (09:58)
[2018-11-14] MEDS: LIDOCAINE 5% TOPICAL PATCH TP SCH (09:58)
[2018-11-14] MEDS: amLODIPine BESYLATE 5 MG TABLET (FP) PO SCH (09:58)
[2018-11-14] MEDS: SERTRALINE HCL 50 MG TABLET (FP) PO SCH (09:58)
[2018-11-14] MEDS: QUEtiapine FUMARATE 200 MG TABLET PO SCH ×2 (09:58→21:12)
[2018-11-14] MEDS: IBUPROFEN 400 MG TABLET (FP) PO PRN ×2 (09:59→21:13)
[2018-11-14] MEDS: THIAMINE HCL 100 MG TABLET (FP) PO SCH (21:12)
[2018-11-14] MEDS: traZODone HCL 100 MG TABLET (FP) PO SCH (21:12)
[2018-11-14] MEDS: MELATONIN 5 MG TABLETS PO PRN (21:13)
[2018-11-14] MEDS: LIDOCAINE PATCH REMOVAL MC SCH (21:50)
[2018-11-15] MEDS: CYCLOBENZAPRINE HCL 10 MG TABLET (FP) PO SCH ×3 (06:02→21:45)
[2018-11-15] MEDS: SERTRALINE HCL 50 MG TABLET (FP) PO SCH (09:46)
[2018-11-15] MEDS: amLODIPine BESYLATE 5 MG TABLET (FP) PO SCH (09:46)
[2018-11-15] MEDS: PRENATAL VITAMINS W/ FOLIC ACID TABLET (FP) PO SCH (09:46)
[2018-11-15] MEDS: QUEtiapine FUMARATE 200 MG TABLET PO SCH ×2 (09:46→21:45)
[2018-11-15] MEDS: LIDOCAINE 5% TOPICAL PATCH TP SCH (09:46)
[2018-11-15] MEDS: IBUPROFEN 400 MG TABLET (FP) PO PRN ×2 (09:47→21:46)
[2018-11-15] MEDS: THIAMINE HCL 100 MG TABLET (FP) PO SCH (21:45)
[2018-11-15] MEDS: traZODone HCL 100 MG TABLET (FP) PO SCH (21:45)
[2018-11-15] MEDS: MELATONIN 5 MG TABLETS PO PRN (21:45)
[2018-11-15] MEDS: LIDOCAINE PATCH REMOVAL MC SCH (21:45)
[2018-11-16] MEDS: CYCLOBENZAPRINE HCL 10 MG TABLET (FP) PO SCH ×3 (05:59→21:23)
[2018-11-16] MEDS: PRENATAL VITAMINS W/ FOLIC ACID TABLET (FP) PO SCH (10:29)
[2018-11-16] MEDS: amLODIPine BESYLATE 5 MG TABLET (FP) PO SCH (10:29)
[2018-11-16] MEDS: QUEtiapine FUMARATE 200 MG TABLET PO SCH ×2 (10:29→21:23)
[2018-11-16] MEDS: SERTRALINE HCL 50 MG TABLET (FP) PO SCH (10:29)
[2018-11-16] MEDS: IBUPROFEN 400 MG TABLET (FP) PO PRN ×2 (10:31→21:24)
[2018-11-16] MEDS: LIDOCAINE 5% TOPICAL PATCH TP SCH (10:32)
[2018-11-16] MEDS: traZODone HCL 100 MG TABLET (FP) PO SCH (21:23)
[2018-11-16] MEDS: MELATONIN 5 MG TABLETS PO PRN (21:23)
[2018-11-16] MEDS: LIDOCAINE PATCH REMOVAL MC SCH (21:25)
[2018-11-16] MEDS: THIAMINE HCL 100 MG TABLET (FP) PO SCH (21:26)
[2018-11-17] MEDS: CYCLOBENZAPRINE HCL 10 MG TABLET (FP) PO SCH ×3 (06:26→21:38)
[2018-11-17] MEDS: amLODIPine BESYLATE 5 MG TABLET (FP) PO SCH (09:40)
[2018-11-17] MEDS: PRENATAL VITAMINS W/ FOLIC ACID TABLET (FP) PO SCH (09:40)
[2018-11-17] MEDS: SERTRALINE HCL 50 MG TABLET (FP) PO SCH (09:40)
[2018-11-17] MEDS: IBUPROFEN 400 MG TABLET (FP) PO PRN (09:40)
[2018-11-17] MEDS: LIDOCAINE 5% TOPICAL PATCH TP SCH (09:40)
[2018-11-17] MEDS: QUEtiapine FUMARATE 200 MG TABLET PO SCH ×2 (09:40→21:38)
[2018-11-17] MEDS: THIAMINE HCL 100 MG TABLET (FP) PO SCH (21:37)
[2018-11-17] MEDS: LIDOCAINE PATCH REMOVAL MC SCH (21:38)
[2018-11-17] MEDS: MELATONIN 5 MG TABLETS PO PRN (21:38)
[2018-11-17] MEDS: traZODone HCL 100 MG TABLET (FP) PO SCH (21:38)
[2018-11-18] MEDS: CYCLOBENZAPRINE HCL 10 MG TABLET (FP) PO SCH ×3 (06:11→21:22)
[2018-11-18] MEDS: SERTRALINE HCL 50 MG TABLET (FP) PO SCH (09:48)
[2018-11-18] MEDS: amLODIPine BESYLATE 5 MG TABLET (FP) PO SCH (09:48)
[2018-11-18] MEDS: PRENATAL VITAMINS W/ FOLIC ACID TABLET (FP) PO SCH (09:48)
[2018-11-18] MEDS: QUEtiapine FUMARATE 200 MG TABLET PO SCH ×2 (09:48→21:22)
[2018-11-18] MEDS: LIDOCAINE 5% TOPICAL PATCH TP SCH (09:49)
[2018-11-18] MEDS: IBUPROFEN 400 MG TABLET (FP) PO PRN ×2 (09:49→21:22)
[2018-11-18] MEDS: MELATONIN 5 MG TABLETS PO PRN (21:22)
[2018-11-18] MEDS: THIAMINE HCL 100 MG TABLET (FP) PO SCH (21:22)
[2018-11-18] MEDS: traZODone HCL 100 MG TABLET (FP) PO SCH (21:22)
[2018-11-18] MEDS: LIDOCAINE PATCH REMOVAL MC SCH (21:58)
[2018-11-19] MEDS: CYCLOBENZAPRINE HCL 10 MG TABLET (FP) PO SCH ×3 (06:05→21:47)
[2018-11-19] MEDS: IBUPROFEN 400 MG TABLET (FP) PO PRN ×2 (10:23→21:47)
[2018-11-19] MEDS: QUEtiapine FUMARATE 200 MG TABLET PO SCH ×2 (10:23→21:47)
[2018-11-19] MEDS: SERTRALINE HCL 50 MG TABLET (FP) PO SCH (10:23)
[2018-11-19] MEDS: amLODIPine BESYLATE 5 MG TABLET (FP) PO SCH (10:24)
[2018-11-19] MEDS: PRENATAL VITAMINS W/ FOLIC ACID TABLET (FP) PO SCH (10:24)
[2018-11-19] MEDS: LIDOCAINE 5% TOPICAL PATCH TP SCH (10:24)
[2018-11-19] MEDS: THIAMINE HCL 100 MG TABLET (FP) PO SCH (21:47)
[2018-11-19] MEDS: traZODone HCL 100 MG TABLET (FP) PO SCH (21:47)
[2018-11-19] MEDS: LIDOCAINE PATCH REMOVAL MC SCH (21:48)
[2018-11-20] MEDS: CYCLOBENZAPRINE HCL 10 MG TABLET (FP) PO SCH ×3 (06:03→21:34)
[2018-11-20] MEDS: QUEtiapine FUMARATE 200 MG TABLET PO SCH ×2 (10:03→21:34)
[2018-11-20] MEDS: SERTRALINE HCL 50 MG TABLET (FP) PO SCH (10:03)
[2018-11-20] MEDS: amLODIPine BESYLATE 5 MG TABLET (FP) PO SCH (10:03)
[2018-11-20] MEDS: LIDOCAINE 5% TOPICAL PATCH TP SCH (10:03)
[2018-11-20] MEDS: PRENATAL VITAMINS W/ FOLIC ACID TABLET (FP) PO SCH (10:03)
[2018-11-20] MEDS: IBUPROFEN 400 MG TABLET (FP) PO PRN ×2 (10:03→21:34)
[2018-11-20] MEDS: THIAMINE HCL 100 MG TABLET (FP) PO SCH (21:33)
[2018-11-20] MEDS: MELATONIN 5 MG TABLETS PO PRN (21:33)
[2018-11-20] MEDS: traZODone HCL 100 MG TABLET (FP) PO SCH (21:34)
[2018-11-20] MEDS: LIDOCAINE PATCH REMOVAL MC SCH (21:35)
[2018-11-21] MEDS: CYCLOBENZAPRINE HCL 10 MG TABLET (FP) PO SCH ×3 (05:53→21:14)
[2018-11-21] MEDS: PRENATAL VITAMINS W/ FOLIC ACID TABLET (FP) PO SCH (10:07)
[2018-11-21] MEDS: QUEtiapine FUMARATE 200 MG TABLET PO SCH ×2 (10:07→21:14)
[2018-11-21] MEDS: SERTRALINE HCL 50 MG TABLET (FP) PO SCH (10:07)
[2018-11-21] MEDS: LIDOCAINE 5% TOPICAL PATCH TP SCH (10:07)
[2018-11-21] MEDS: amLODIPine BESYLATE 5 MG TABLET (FP) PO SCH (10:07)
[2018-11-21] MEDS: THIAMINE HCL 100 MG TABLET (FP) PO SCH (21:14)
[2018-11-21] MEDS: traZODone HCL 100 MG TABLET (FP) PO SCH (21:14)
[2018-11-21] MEDS: MELATONIN 5 MG TABLETS PO PRN (21:14)
[2018-11-21] MEDS: LIDOCAINE PATCH REMOVAL MC SCH (21:15)
[2018-11-22] MEDS: CYCLOBENZAPRINE HCL 10 MG TABLET (FP) PO SCH ×3 (05:47→21:08)
[2018-11-22] MEDS: QUEtiapine FUMARATE 200 MG TABLET PO SCH ×2 (09:45→21:08)
[2018-11-22] MEDS: SERTRALINE HCL 50 MG TABLET (FP) PO SCH (09:45)
[2018-11-22] MEDS: amLODIPine BESYLATE 5 MG TABLET (FP) PO SCH (09:45)
[2018-11-22] MEDS: PRENATAL VITAMINS W/ FOLIC ACID TABLET (FP) PO SCH (09:46)
[2018-11-22] MEDS: LIDOCAINE 5% TOPICAL PATCH TP SCH (09:46)
[2018-11-22] MEDS: IBUPROFEN 400 MG TABLET (FP) PO PRN ×2 (09:46→21:08)
[2018-11-22] MEDS: THIAMINE HCL 100 MG TABLET (FP) PO SCH (21:08)
[2018-11-22] MEDS: LIDOCAINE PATCH REMOVAL MC SCH (21:09)
[2018-11-22] MEDS: traZODone HCL 100 MG TABLET (FP) PO SCH (21:09)
[2018-11-22] MEDS: MELATONIN 5 MG TABLETS PO PRN (21:09)
[2018-11-23] MEDS: CYCLOBENZAPRINE HCL 10 MG TABLET (FP) PO SCH ×3 (06:29→21:15)
[2018-11-23] MEDS: QUEtiapine FUMARATE 200 MG TABLET PO SCH ×2 (10:15→21:15)
[2018-11-23] MEDS: amLODIPine BESYLATE 5 MG TABLET (FP) PO SCH (10:15)
[2018-11-23] MEDS: PRENATAL VITAMINS W/ FOLIC ACID TABLET (FP) PO SCH (10:15)
[2018-11-23] MEDS: SERTRALINE HCL 50 MG TABLET (FP) PO SCH (10:15)
[2018-11-23] MEDS: LIDOCAINE 5% TOPICAL PATCH TP SCH (10:15)
[2018-11-23] MEDS: traZODone HCL 100 MG TABLET (FP) PO SCH (21:15)
[2018-11-23] MEDS: IBUPROFEN 400 MG TABLET (FP) PO PRN (21:15)
[2018-11-23] MEDS: THIAMINE HCL 100 MG TABLET (FP) PO SCH (21:15)
[2018-11-23] MEDS: LIDOCAINE PATCH REMOVAL MC SCH (21:48)
[2018-11-24] MEDS: CYCLOBENZAPRINE HCL 10 MG TABLET (FP) PO SCH ×3 (06:37→21:40)
[2018-11-24 06:54] VITALS: TEMP 97.5
[2018-11-24] MEDS: QUEtiapine FUMARATE 200 MG TABLET PO SCH ×2 (09:34→21:40)
[2018-11-24] MEDS: amLODIPine BESYLATE 5 MG TABLET (FP) PO SCH (09:34)
[2018-11-24] MEDS: LIDOCAINE 5% TOPICAL PATCH TP SCH (09:34)
[2018-11-24] MEDS: SERTRALINE HCL 50 MG TABLET (FP) PO SCH (09:34)
[2018-11-24] MEDS: PRENATAL VITAMINS W/ FOLIC ACID TABLET (FP) PO SCH (09:34)
--- NOTE | 2018-11-24 15:28 | PN ---
[facility] Progress Note Note: Patient is scheduled for discharge tomorrow. Scripts for 30 days supply of medications( Seroquel 200 mg/bid, Zoloft 100 mg/day, Trazadone 100 mg/hs)will be electronically transmitted to [facility] at [address] [place] [address]
[2018-11-24] MEDS: traZODone HCL 100 MG TABLET (FP) PO SCH (21:40)
[2018-11-24] MEDS: THIAMINE HCL 100 MG TABLET (FP) PO SCH (21:40)
[2018-11-24] MEDS: IBUPROFEN 400 MG TABLET (FP) PO PRN (21:41)
[2018-11-24] MEDS: LIDOCAINE PATCH REMOVAL MC SCH (21:52)
[2018-11-25] MEDS: CYCLOBENZAPRINE HCL 10 MG TABLET (FP) PO SCH (06:12)
[2018-11-25 06:48] VITALS: BP 127/73; PULSE 96
[2018-11-25] MEDS: PRENATAL VITAMINS W/ FOLIC ACID TABLET (FP) PO SCH (09:02)
[2018-11-25] MEDS: IBUPROFEN 400 MG TABLET (FP) PO PRN (09:02)
[2018-11-25] MEDS: amLODIPine BESYLATE 5 MG TABLET (FP) PO SCH (09:02)
[2018-11-25] MEDS: LIDOCAINE 5% TOPICAL PATCH TP SCH (09:03)
[2018-11-25] MEDS: SERTRALINE HCL 50 MG TABLET (FP) PO SCH (09:05)
[2018-11-25] MEDS: QUEtiapine FUMARATE 200 MG TABLET PO SCH (09:05)
--- NOTE | 2018-11-25 11:17 | PN ---
[facility] Progress Note Note: REHAB DISCHARGE NOTE: PATIENT SCHEDULED FOR DISCHARGE TODAY FROM REHAB. PATIENT STATES HE ACCOMPLISHED ALL REHAB GOALS AND IS MOTIVATED IN MAINTAINING HIS SOBRIETY. PATIENT TO SCHEDULE AFTERCARE INDEPENDENTLY AND ENCOURAGED TO ATTEND GROUP MEETINGS, AA/NA TO PREVENT RELAPSE. PATIENT ALSO STRONGLY RECOMMENDED TO FOLLOW UP WITH PCP TO CONTINUE ONGOING MEDICAL MANAGEMENT. PATIENT MEDICALLY STABLE AT TIME OF DISCHARGE AND DENIES SI/HI. Vital Signs Temperature 97.5 F L 11/25/18 06:47 Pulse Rate 96 H 11/25/18 06:47 Respiratory Rate 20 11/25/18 06:47 Blood Pressure 127/73 11/25/18 06:47 O2 Sat by Pulse Oximetry (%) Laboratory Tests 10/25/18 10/25/18 10/25/18 07:00 07:00 07:00 WBC 6.8 RBC 4.02 Hgb 12.7 Hct 38.9 MCV 96.8 H MCH 31.7 MCHC 32.7 RDW 14.5 Plt Count 283 MPV 8.7 Sodium 136 Potassium 4.0 Chloride 104 Carbon Dioxide 28 Anion Gap 4 L BUN 17 Creatinine 1.0 Creat Clearance w eGFR 78.16 Random Glucose 79 Calcium 8.8 Total Bilirubin 0.5 AST 45 H ALT 37 Alkaline Phosphatase 115 Total Protein 7.1 Albumin 3.4 Urine Color Urine Appearance Urine pH Ur Specific [place] Urine Protein Urine Glucose (UA) Urine Ketones Urine Blood Urine Nitrite Urine Bilirubin Urine Urobilinogen Ur Leukocyte Esterase RPR Titer Nonreactive 10/26/18 07:45 WBC RBC Hgb Hct MCV MCH MCHC RDW Plt Count MPV Sodium Potassium Chloride Carbon Dioxide Anion Gap BUN Creatinine Creat Clearance w eGFR Random Glucose Calcium Total Bilirubin AST ALT Alkaline Phosphatase Total Protein Albumin Urine Color Yellow Urine Appearance Clear Urine pH 5.5 Ur Specific [place] 1.023 Urine Protein Negative Urine Glucose (UA) Negative Urine Ketones Negative Urine Blood Negative Urine Nitrite Negative Urine Bilirubin Negative Urine Urobilinogen 1.0 Ur Leukocyte Esterase Negative RPR Titer
== END 2018-11-25 09:10 | disposition home or self-care (01) | DRG 895 ==
LOC: YASAS 17:46 → Y3N 18:55 → Y3W 10-29 11:58
PROVIDERS: ADMIT Surgery; ATTEND Neuromusculoskeletal Medicine & OMM
PROC: HZ2ZZZZ Detoxification Services for Substance Abuse Treatment (ICD-10-PCS; 2018-10-24)
PROC: HZ42ZZZ Group Counseling for Substance Abuse Treatment, Cognitive-Behavioral (ICD-10-PCS; principal; 2018-10-27)
DX: F10.20 Alcohol dependence, uncomplicated (principal); F14.20 Cocaine dependence, uncomplicated; F17.210 Nicotine dependence, cigarettes, uncomplicated; K08.89 Other specified disorders of teeth and supporting structures
CPT/HCPCS: 36415; 80053; 81003; 85027; 86593; 87086

== ENCOUNTER 2022-11-01 22:56 | Inpatient (IN) | payer OTHER ==
[2022-11-01 23:47] VITALS: BMI 33.2
[2022-11-02] MEDS ORDERED: ACETAMINOPHEN 325 MG TABLET (FP) PO PRN (00:18)
[2022-11-02] MEDS ORDERED: LOPERAMIDE HCL 2 MG CAPSULE PO PRN (00:18)
[2022-11-02] MEDS ORDERED: MAG HYDROX/AL HYDROX/SIMETH 30 ML UNIT-DOSE CUP PO PRN (00:18)
[2022-11-02] MEDS ORDERED: NALOXONE HCL (KLOXXADO) 8 MG SPRAY NS PRN (00:18)
[2022-11-02] MEDS ORDERED: BISMUTH SUBSALICYLATE 524 MG/30 ML PO PRN (00:18)
[2022-11-02] MEDS ORDERED: NALOXONE HCL 0.4 MG/ML VIAL IM PRN (00:18)
[2022-11-02] MEDS ORDERED: DICYCLOMINE HCL 10 MG CAPSULE PO PRN (00:18)
[2022-11-02] MEDS ORDERED: IBUPROFEN 600 MG TABLET (FP) PO PRN (00:18)
[2022-11-02] MEDS ORDERED: POLYETHYLENE GLYCOL (HEALTHYLAX) 3350 17 GM PACKET PO PRN (00:18)
[2022-11-02] MEDS ORDERED: guaiFENesin 600 MG TABLET.ER (FP) PO PRN (00:18)
[2022-11-02] MEDS ORDERED: ONDANSETRON *ODT* 4 MG TABLET SL PRN (00:18)
[2022-11-02] MEDS ORDERED: MAGNESIUM HYDROX 2400MG/30ML ORAL SUSPENSION 30 ML CUP PO PRN (00:18)
[2022-11-02] MEDS ORDERED: IBUPROFEN 400 MG TABLET (FP) PO PRN (00:18)
[2022-11-02] MEDS ORDERED: BENZOCAINE/MENTHOL (CHLORASEPTIC ) LOZENGE MM PRN (00:18)
[2022-11-02] MEDS ORDERED: BENZONATATE 200 MG CAPSULE PO PRN (00:18)
[2022-11-02] MEDS ORDERED: NICOTINE 10 MG CARTRIDGE (INHALER) IH PRN (00:18)
[2022-11-02] MEDS ORDERED: chlordiazePOXIDE HCL 25 MG CAPSULE PO PRN (09:47)
[2022-11-02] MEDS ORDERED: amLODIPine BESYLATE 5 MG TABLET (FP) ONE (10:07)
[2022-11-02] MEDS ORDERED: PRENATAL VITAMINS W/ FOLIC ACID TABLET (FP) PO ONE (10:07)
[2022-11-02] MEDS: PRENATAL VITAMINS W/ FOLIC ACID TABLET (FP) PO SCH (10:10)
[2022-11-02] MEDS: amLODIPine BESYLATE 5 MG TABLET (FP) PO SCH (10:10)
[2022-11-02] MEDS: NICOTINE 14 MG/24 HOURS TOPICAL PATCH TD SCH (10:12)
[2022-11-02] MEDS ORDERED: chlordiazePOXIDE HCL 25 MG CAPSULE ONE (10:19)
[2022-11-02] MEDS: chlordiazePOXIDE HCL 25 MG CAPSULE PO SCH ×3 (10:21→22:00)
[2022-11-02] MEDS: QUEtiapine FUMARATE 200 MG TABLET PO SCH ×2 (11:44→22:01)
[2022-11-02] MEDS ORDERED: MELATONIN 5 MG TABLETS PO SCH (22:00)
[2022-11-02] MEDS: THIAMINE HCL 100 MG TABLET (FP) PO SCH (22:01)
[2022-11-03] MEDS: chlordiazePOXIDE HCL 25 MG CAPSULE PO SCH ×4 (05:21→22:07)
[2022-11-03] MEDS: NICOTINE 14 MG/24 HOURS TOPICAL PATCH TD SCH (10:04)
[2022-11-03] MEDS: QUEtiapine FUMARATE 200 MG TABLET PO SCH ×2 (10:04→22:06)
[2022-11-03] MEDS: amLODIPine BESYLATE 5 MG TABLET (FP) PO SCH (10:04)
[2022-11-03] MEDS: PRENATAL VITAMINS W/ FOLIC ACID TABLET (FP) PO SCH (10:04)
[2022-11-03 11:24] LABS: HEMATOCRIT 38.9 % (35.4-49); MCH 30.6 pg (25.7-33.7); MCHC 33.4 g/dl (32.0-35.9); MEAN CELL VOLUME 91.5 fl (80-96); MEAN PLT VOLUME 9.7 fl (7.5-11.1); PLATELET COUNT 312 10^3/uL (134-434); RBC 4.25 M/mm3 (4.00-5.60); RDW 14.4 % (11.9-15.9); WHITE BLOOD COUNT 6.8 K/mm3 (4.0-10.0)
[2022-11-03 11:39] LABS: CALCIUM 10.1 mg/dL (8.5-10.1)
[2022-11-03 11:41] LABS: ALBUMIN 3.5 g/dl (3.4-5.0); BLOOD UREA NITROGEN 9.2 mg/dL (7-18)
[2022-11-03 11:44] LABS: BILIRUBIN,TOTAL 0.4 mg/dL (0.2-1); TOT PROT 7.6 g/dl (6.4-8.2)
[2022-11-03] MEDS: THIAMINE HCL 100 MG TABLET (FP) PO SCH (22:07)
[2022-11-03] MEDS ORDERED: cloNIDine HCL 0.1 MG TABLET PO ONE (23:37)
[2022-11-04] MEDS ORDERED: chlordiazePOXIDE HCL 10 MG CAPSULE PO PRN
[2022-11-04] MEDS: chlordiazePOXIDE HCL 10 MG CAPSULE PO SCH ×4 (05:45→22:12)
[2022-11-04] MEDS: PRENATAL VITAMINS W/ FOLIC ACID TABLET (FP) PO SCH (10:14)
[2022-11-04] MEDS: METHOCARBAMOL 500 MG TABLET PO PRN (10:14)
[2022-11-04] MEDS: amLODIPine BESYLATE 5 MG TABLET (FP) PO SCH (10:14)
[2022-11-04] MEDS: QUEtiapine FUMARATE 200 MG TABLET PO SCH ×2 (10:14→22:12)
[2022-11-04] MEDS: NICOTINE 14 MG/24 HOURS TOPICAL PATCH TD SCH (10:14)
[2022-11-04] MEDS ORDERED: SODIUM POLYSTYRENE SULFONATE 15 GM/60 ML BOTTLE PO ONE (10:40)
[2022-11-04] MEDS: THIAMINE HCL 100 MG TABLET (FP) PO SCH (22:11)
[2022-11-05] MEDS: chlordiazePOXIDE HCL 10 MG CAPSULE PO SCH ×2 (06:21→17:22)
[2022-11-05] MEDS: amLODIPine BESYLATE 5 MG TABLET (FP) PO SCH (10:28)
[2022-11-05] MEDS: METHOCARBAMOL 500 MG TABLET PO PRN ×2 (10:28→21:59)
[2022-11-05] MEDS: PRENATAL VITAMINS W/ FOLIC ACID TABLET (FP) PO SCH (10:28)
[2022-11-05] MEDS: NICOTINE 14 MG/24 HOURS TOPICAL PATCH TD SCH (10:28)
[2022-11-05] MEDS: QUEtiapine FUMARATE 200 MG TABLET PO SCH ×2 (10:28→21:59)
[2022-11-05] MEDS: THIAMINE HCL 100 MG TABLET (FP) PO SCH (21:59)
[2022-11-06] MEDS ORDERED: chlordiazePOXIDE HCL 10 MG CAPSULE PO ONE (05:00)
[2022-11-06] MEDS: PRENATAL VITAMINS W/ FOLIC ACID TABLET (FP) PO SCH (10:07)
[2022-11-06] MEDS: amLODIPine BESYLATE 5 MG TABLET (FP) PO SCH (10:07)
[2022-11-06] MEDS: QUEtiapine FUMARATE 200 MG TABLET PO SCH (10:08)
[2022-11-06] MEDS: NICOTINE 14 MG/24 HOURS TOPICAL PATCH TD SCH (10:09)
[2022-11-06 13:40] VITALS: BP 156/91; PULSE 67; RESP 18; TEMP 98.6
== END 2022-11-06 02:15 | disposition home or self-care (01) | DRG 897 ==
LOC: YASAS 22:56 → Y6N 11-02 10:12
PROVIDERS: ADMIT Allergy & Immunology; ATTEND Surgery
PROC: HZ2ZZZZ Detoxification Services for Substance Abuse Treatment (ICD-10-PCS; principal; 2022-11-02)
DX: F10.230 Alcohol dependence with withdrawal, uncomplicated (principal); F14.20 Cocaine dependence, uncomplicated; F19.280 Other psychoactive substance dependence with psychoactive substance-induced anxiety disorder; F19.282 Other psychoactive substance dependence with psychoactive substance-induced sleep disorder; F17.210 Nicotine dependence, cigarettes, uncomplicated; F31.9 Bipolar disorder, unspecified; F43.10 Post-traumatic stress disorder, unspecified; I10 Essential (primary) hypertension; E87.5 Hyperkalemia; H91.90 Unspecified hearing loss, unspecified ear; M54.50 Low back pain, unspecified; G89.29 Other chronic pain
CPT/HCPCS: 36415; 80053; 84132; 85027; 86780; 87811; C9803-CS; U0003; U0005

== ENCOUNTER 2024-01-16 13:16 | Inpatient (IN) | payer OTHER ==
[2024-01-16 15:14] VITALS: BMI 29.2
[2024-01-16] MEDS ORDERED: DICYCLOMINE HCL 10 MG CAPSULE PO PRN (16:36)
[2024-01-16] MEDS ORDERED: IBUPROFEN 600 MG TABLET (FP) PO PRN (16:36)
[2024-01-16] MEDS ORDERED: IBUPROFEN 400 MG TABLET (FP) PO PRN (16:36)
[2024-01-16] MEDS ORDERED: ACETAMINOPHEN 325 MG TABLET (FP) PO PRN (16:36)
[2024-01-16] MEDS ORDERED: NICOTINE POLACRILEX 2 MG LOZENGE BC PRN (16:36)
[2024-01-16] MEDS ORDERED: POLYETHYLENE GLYCOL (HEALTHYLAX) 3350 17 GM PACKET PO PRN (16:36)
[2024-01-16] MEDS ORDERED: hydrOXYzine PAMOATE 25 MG CAPSULE (FP) PO PRN (16:36)
[2024-01-16] MEDS ORDERED: NICOTINE POLACRILEX 2 MG GUM BUC PRN (16:36)
[2024-01-16] MEDS ORDERED: BENZOCAINE/MENTHOL (CHLORASEPTIC ) LOZENGE MM PRN (16:36)
[2024-01-16] MEDS ORDERED: MAGNESIUM HYDROX 2400MG/30ML ORAL SUSPENSION 30 ML CUP PO PRN (16:36)
[2024-01-16] MEDS ORDERED: P-EPHED 60MG/TRIPROLIDI 2.5MG TABLET PO PRN (16:36)
[2024-01-16] MEDS ORDERED: BENZONATATE 200 MG CAPSULE PO PRN (16:36)
[2024-01-16] MEDS ORDERED: guaiFENesin 600 MG TABLET.ER (FP) PO PRN (16:36)
[2024-01-16] MEDS ORDERED: ONDANSETRON *ODT* 4 MG TABLET SL PRN (16:36)
[2024-01-16] MEDS: THIAMINE 100 MG TABLET PO SCH (22:29)
[2024-01-16] MEDS: MELATONIN 5 MG TABLETS PO SCH (22:29)
[2024-01-17] MEDS: PRENATAL VITAMINS W/ FOLIC ACID TABLET (FP) PO SCH (09:31)
[2024-01-17] MEDS ORDERED: chlordiazePOXIDE HCL 25 MG CAPSULE PO PRN (10:06)
[2024-01-17] MEDS: amLODIPine BESYLATE 5 MG TABLET (FP) PO SCH (10:42)
[2024-01-17] MEDS: chlordiazePOXIDE HCL 25 MG CAPSULE PO SCH (10:42)
[2024-01-17 14:47] LABS: HEMATOCRIT 40.2 % (35.4-49); HEMOGLOBIN 13.4 GM/dL (11.7-16.9); MCH 30.9 pg (25.7-33.7); MCHC 33.2 g/dl (32.0-35.9); MEAN CELL VOLUME 92.9 fl (80-96); MEAN PLT VOLUME 9.1 fl (7.5-11.1); PLATELET COUNT 307 10^3/uL (134-434); RBC 4.33 M/mm3 (4.00-5.60); RDW 14.8 % (11.9-15.9); WHITE BLOOD COUNT 6.9 K/mm3 (4.0-10.0)
[2024-01-17 14:55] LABS: CHLORIDE 107 mmol/L (98-107); POTASSIUM 4.1 mmol/L (3.5-5.1); SODIUM 140 mmol/L (136-145)
[2024-01-17 15:10] LABS: ANION GAP 6 mmol/L (4-13); BLOOD UREA NITROGEN 9.8 mg/dL (7-18); CALCIUM 9.3 mg/dL (8.5-10.1); CO2 27 mmol/L (21-32); GLUCOSE,RANDOM 88 mg/dL (74-106)
[2024-01-17 15:11] LABS: ALBUMIN 3.3 g/dl (3.4-5.0)
[2024-01-17 15:13] LABS: CREATININE 0.9 mg/dL (0.55-1.3); SGPT/ALT 26 U/L (13-61)
[2024-01-17 15:14] LABS: BILIRUBIN,TOTAL 0.4 mg/dL (0.2-1); SGOT/AST 19 U/L (15-37); TOT PROT 7.1 g/dl (6.4-8.2)
[2024-01-17 15:16] LABS: ALK PHOS 124 U/L (45-117)
[2024-01-17] MEDS: QUEtiapine FUMARATE 100 MG TABLET (FP) PO SCH (22:13)
[2024-01-17] MEDS: METHOCARBAMOL 500 MG TABLET PO PRN (22:15)
[2024-01-18] MEDS: BISMUTH SUBSALICYLATE 524 MG/30 ML PO PRN (17:32)
[2024-01-19] MEDS: chlordiazePOXIDE HCL 25 MG CAPSULE PO SCH (05:15)
[2024-01-19] MEDS: LOPERAMIDE HCL 2 MG CAPSULE PO PRN (10:19)
[2024-01-19] MEDS: MAG HYDROX/AL HYDROX/SIMETH 30 ML UNIT-DOSE CUP PO PRN (17:35)
[2024-01-20] MEDS: chlordiazePOXIDE HCL 10 MG CAPSULE PO SCH (06:12)
[2024-01-20] MEDS: chlordiazePOXIDE HCL 10 MG CAPSULE PO PRN (06:23)
[2024-01-20] MEDS: QUEtiapine FUMARATE 100 MG TABLET (FP) PO SCH (21:36)
[2024-01-21] MEDS: chlordiazePOXIDE HCL 10 MG CAPSULE PO SCH (05:30)
[2024-01-21 09:13] VITALS: BP 122/85; PULSE 85; RESP 18; TEMP 97.6
[2024-01-22] MEDS ORDERED: chlordiazePOXIDE HCL 10 MG CAPSULE PO ONE (05:00)
== END 2024-01-21 11:13 | disposition home or self-care (01) | DRG 897 ==
LOC: YASAS 13:16 → Y3N 21:45 → UNDOADMIN 21:45 → Y3N 01-20 21:10
PROVIDERS: ADMIT Allergy & Immunology; ATTEND Surgery
PROC: HZ2ZZZZ Detoxification Services for Substance Abuse Treatment (ICD-10-PCS; principal; 2024-01-16)
DX: F10.230 Alcohol dependence with withdrawal, uncomplicated (principal); F14.20 Cocaine dependence, uncomplicated; F17.210 Nicotine dependence, cigarettes, uncomplicated; F31.9 Bipolar disorder, unspecified; F43.10 Post-traumatic stress disorder, unspecified; M54.50 Low back pain, unspecified; G89.29 Other chronic pain; Z89.012 Acquired absence of left thumb; Z89.021 Acquired absence of right finger(s)
CPT/HCPCS: 36415; 80053; 80305; 80307; 85027; 86780; 93005; 93010